=== PATIENT | female | born 1950 | race Caucasian/White ===

== ENCOUNTER 2017-02-08 17:34 | Inpatient (IN) | payer MEDICARE, BC, OTHER ==
[~2017-02-08] VITALS: Ht 165.1 cm; Wt 112.5 kg
[2017-02-08] MEDS ORDERED: LISI20TA PO (17:45)
[2017-02-08] MEDS ORDERED: LISI40TAB PO (17:46)
[2017-02-08] MEDS ORDERED: HYDR25TAB PO (17:46)
[2017-02-08] MEDS ORDERED: IPRATROPIUM 0.5MG/ALBUTEROL 2.5MG INH SOL UD 3ML (DUONEB)(J7620) NEB PRN (18:15)
[2017-02-08 19:05] LABS: INR 1.06
[2017-02-08 19:07] LABS: DIFF SLIDE NUMBER 340; MEAN CORPUSCULAR HEMOGLOBIN 15.7 pg (27.0-33.0); MEAN CORPUSCULAR HGB CONC 23.8 g/dl (32.0-36.5); PLATELET COUNT, AUTOMATED 397 k/mm3 (150-450); RED CELL DISTRIBUTION WIDTH 18.3 % (11.5-14.5); WHITE BLOOD COUNT 10.9 K/mm3 (4.0-10.0)
[2017-02-08 19:30] LABS: CALCIUM LEVEL 8.1 MG/DL (8.8-10.2); CREATININE FOR GFR 1.59 MG/DL (0.55-1.02); GLOMERULAR FILTRATION RATE 34.6 (>45); POTASSIUM SERUM 3.7 MEQ/L (3.5-5.1)
[2017-02-08 19:32] LABS: ALBUMIN 2.8 GM/DL (3.2-5.2); ALBUMIN/GLOBULIN RATIO 0.7 (1.00-1.93); BILIRUBIN,DIRECT 0.2 MG/DL (0.0-0.2); BILIRUBIN,TOTAL 0.7 MG/DL (0.2-1.0); TOTAL PROTEIN 6.8 GM/DL (6.4-8.2)
[2017-02-08 19:49] LABS: ANISOCYTOSIS 2+; HYPOCHROMASIA 3+; MICROCYTOSIS 3+; POLYCHROMASIA 1+
[2017-02-08] MEDS ORDERED: ACET50TAOT PO (20:00)
[2017-02-08 20:38] LABS: RETIC HEMOGLOBIN CONTENT CHr 18.7 PG (24-36); RETICULOCYTE ABSOLUTE ADVIA212 98 x10(9)/L (17-77)
[2017-02-08 20:42] LABS: REASON FOR REVIEW COMPREHENSIVE REVIEW
[2017-02-08 20:43] LABS: PERCENT SATURATION 1.7 % (13.2-37.4)
[2017-02-08 20:55] LABS: FOLATE 10.5 NG/ML (>5.4)
--- NOTE | 2017-02-08 21:10 | REP ---
CHEST, TWO VIEWS: HISTORY: Dyspnea and cough. COMPARISON: 01/25/2017 The lung lomas are hypoexpanded. The cardiomediastinal silhouette is unchanged. The heart is borderline for the technique utilized. There is a hiatal hernia status quo. There are no new abnormal opacities. Fibrotic changes are seen in the left lung base accentuated by technique. There is no change in the osseous structures. IMPRESSION: Stable appearing chronic changes as described above. Signed by Catalino Mercer DO 02/09/2017 12:18 P
[2017-02-08 21:56] LABS: FREE T4 1.27 NG/DL (0.76-1.46); MAGNESIUM LEVEL 2.7 MG/DL (1.8-2.4); TOTAL PROTEIN 6.9 GM/DL (6.4-8.2)
--- NOTE | 2017-02-08 22:56 | HPEPDOC ---
General Date of Admission Feb 08, 2017 at 20:58 Attending Physician: KESHA CHAUDHARY MD Chief Complaint The patient is a 66-year-old female admitted with a reason for visit of Anemia. Source: Patient Exam Limitations: No limitations Timing/Duration: Week(s) Severity: Severe History of Present Illness Paola Walls is an anxious 66 year old female with a history of hypertension who presents with shortness of breath and fatigue. Her daughter and son were present during the interview. 5 weeks ago, she had what she said was "a sinus infection" treated with a nasal spray. The symptoms did not improve, and on follow up she was diagnosed with pneumonia and started on Levaquin. The antibiotics did not seem to help her and she started to become pale 1 week ago. She denies any active bleeding source but states she has always had anemia. Her hemoglobin was 2.9 on admission. She denies and nausea, vomiting, fevers, night sweats, or pain. She does admit to feeling chilled. Her ECG showed sinus tachycardia at 100bmp with non-specific ST-T wave changes, but was otherwise unremarkable . Transfusion of 2 PRBC's started in the ER. Home Medications Scheduled (Senna Plus 8.6-50 mg) 1 Tab Tab, 1 TAB PO BID Ascorbic Acid (Vitamin C) 250 Mg Tab, 250 MG PO BID Cyanocobalamin (Vitamin B-12) 1,000 Mcg Tab, 1,000 MCG PO BID Ferrous Sulfate (Ferrous Sulfate) 325 Mg Tab, 325 MG PO BID Omeprazole (Omeprazole) 20 Mg Cap, 40 MG PO BID Scheduled PRN Acetaminophen (Acetaminophen) 500 Mg Tab, 250 MG PO for PAIN, (Reported) Allergies Coded Allergies: No Known Drug Allergy (Unverified Allergy, Unknown, 01/16/13) Past Medical History Medical History Hypertension, Anemia (low grade per patient) Surgical History Bilateral Cataract removal 3 children, 2 c-sections She thinks she may have had a colonoscopy a long time ago, but cannot remember. Family History Significant Family History: Heart disease (Father and mother) Also, 2 Brothers with history of AK, they also have HTN. 3 children, all of whom think they have anemia, one is taking iron pills. Social History * Smoker: Denies Alcohol: Denies Drugs: denies Recent Travel/Sick Contacts: Denies: Recent sick contacts . Review of Symptoms Constitutional: Reports: Chills, Fatigue, Denies: Fever, Night Sweats Skin: Reports: Other (pale) Pulmonary: Reports: Dyspnea, Denies: Pleuritic Chest Pain Cardiovascular: Denies: Chest Pain, Edema Gastrointestinal: Denies: Nausea, Vomiting, Abdominal Pain, Diarrhea, Constipation, Melena, Hematochezia Genitourinary: Reports: Other Symptoms (Still has uterus, went through menopause over 10 years ago. No vaginal bleeding.), Denies: Hematuria Psych: Reports: Anxiety Physical Examination General Exam: Positive: Alert, Cooperative, Mild Distress Eye Exam: Positive: PERRLA, EOMI ENT Exam: Positive: Atraumatic, Other ENT (Pale oral mucosa) Chest Exam: Positive: Clear to auscultation, Negative: Rales, Rhonchi, Wheezing Heart Exam: Positive: Tachycardic, Murmurs (1/6 systolic), Negative: Gallops, Rubs Abdomen Exam: Positive: Normal bowel sounds, Soft, Negative: Tenderness Skin Exam: Negative: Rash Neuro Exam: Positive: Normal Speech Vital Signs Vital Signs Date Time Temp Pulse Resp B/P Pulse Ox O2 Delivery O2 Flow Rate FiO2 02/08/17 20:18 104 18 130/62 100 Room Air 02/08/17 17:34 98.1 Laboratory Data Labs 24H Laboratory Tests 2 02/08/17 18:34: Absolute Reticulocyte Count 98H, Aspartate Amino Transf (AST/SGOT) 12L, Alanine Aminotransferase (ALT/SGPT) 16, Alkaline Phosphatase 97, Total Bilirubin 0.7, Direct Bilirubin 0.2, Albumin 2.8L, Albumin/Globulin Ratio 0.70L, Anion Gap 10, Anisocytosis 2+, B-Type Natriuretic Peptide 192H, Blood Urea Nitrogen 47H, Creatinine 1.59H, Sodium Level 138, Potassium Level 3.7, Chloride Level 106, Carbon Dioxide Level 22, Calcium Level 8.1L, Differential Pathologist's Review COMPREHENSIVE REVIEW, Differential Slide Review Report, Ferritin 2L, Folate 10.5 , Glomerular Filtration Rate 34.6L, Hypochromasia 3+, Iron Level 9L, Lactic Acid Level 1.9, Lipase 373, Lymphocytes (Manual) 20, Microcytosis 3+, Monocytes (Manual) 6, Neutrophils 74, Percent Reticulocyte Count 5.30H, Peripheral Blood Smear Path Consult PERIPHERAL SMEAR, Platelet Estimate NORMAL, Polychromasia 1+ , Prothromb Time International Ratio 1.06, Prothrombin Time 13.9, Reticulocyte Hgb Content (CHr) 18.7L, Total Iron Binding Capacity 522H, Total Protein 6.8, Transferrin % Saturation 1.7L, Vitamin B12 Level 180L CBC/BMP Laboratory Tests 02/08/17 18:34 Calcium Level 8.1 L, Red Blood Count 1.87 L, Mean Corpuscular Volume 66.0 L, Mean Corpuscular Hemoglobin 15.7 L, Mean Corpuscular Hemoglobin Concent 23.8 L, Red Cell Distribution Width 18.3 H Microbiology Microbiology 02/08/17 Blood Culture, Received Pending Problems (1) Symptomatic anemia Status: Chronic Response to Treatment: Improving Discussed With: Patient Problem Text: Patient was given 2 transfusions in the ER. Will continue to monitor H/H being careful not to fluid overload the patient. Iron deficiency anemia. Differentials included parvovirus B19 aplastic crisis, myelosuppression due to Levaquin use, multiple myeloma, thalassemia, acute bleeding, and hemolytic syndromes. Ordered SPEP and HPEP, iron studies, magnesium level, UA, LFT, TFT, LDH, haptoglobin, and occult blood stool. Pending results, may consider colonoscopy & EGD. (2) Shortness of breath Status: Acute Response to Treatment: Stable Discussed With: Patient Problem Text: Patient is currently not in any respiratory distress. Talking in complete sentences. Likely due to anemia. CXR did not show evidence of PNA. Will treat anemia and follow symptoms closely. (3) B12 deficiency Status: Acute (4) Leukocytosis Status: Acute (5) Hypertension Status: Chronic (6) Hiatal hernia Status: Chronic Plan / VTE VTE Prophylaxis Ordered?: No VTE Exclusion Pharmacological: Bleeding Risk Plan Plan I have both independently examined this patient as well as reviewed the dictated note. I have discussed in detail with the resident the findings and plan of treatment as documented in the residents note. I will continue to follow the patient and offer further guidance to the patients care as necessary during this hospital stay. Grossly anemic. Informed consent obtained for transfusion. Case discussed with Dr. Manrique, her primary care provider, in general. GREGG GREEN DO Feb 08, 2017 22:56 KESHA CHAUDHARY MD Feb 12, 2017 20:26
[2017-02-08 23:50] VITALS: BP 110/52
[2017-02-09 04:00] VITALS: PULSE 83
--- NOTE | 2017-02-09 05:52 | ECGEPIP ---
Stationary ECG Study [facility] - ED Test Date: 2017-02-08 Pat Name: DENISE VELA Department: Room: - Gender: F [employer] Supervisor: miya : 1950 Requested By: ZELALEM MALDONADO Order Number: [id number] Reading MD: Valentino Hubbard Measurements Intervals Warren Rate: 100 P: 54 NV: 159 QRS: 0 QRSD: 89 T: 66 QT: 333 QTc: 431 Interpretive Statements SINUS TACHYCARDIA ANTEROLATERAL ST DEPRESSION, CONSIDER ISCHEMIA NO PRIORS Electronically Signed On 02-09-2017 5:52:22 EDT by Valentino Hubbard
[2017-02-09 05:55] LABS: MEAN CORPUSCULAR HEMOGLOBIN 20.6 pg (27.0-33.0); MEAN CORPUSCULAR HGB CONC 28.9 g/dl (32.0-36.5); RED CELL DISTRIBUTION WIDTH 19.9 % (11.5-14.5); WHITE BLOOD COUNT 9.8 K/mm3 (4.0-10.0)
[2017-02-09 05:58] LABS: MEAN CORPUSCULAR VOLUME 71.3 fl (80.0-96.0)
[2017-02-09 06:09] LABS: CALCIUM LEVEL 7.8 MG/DL (8.8-10.2); CREATININE FOR GFR 1.41 MG/DL (0.55-1.02); GLOMERULAR FILTRATION RATE 39.7 (>45); POTASSIUM SERUM 3.6 MEQ/L (3.5-5.1)
[2017-02-09] MEDS ORDERED: POTASSIUM CHLORIDE 10 MEQ SR TABLET PO ONE (07:15)
[2017-02-09 07:30] VITALS: BP 102/56
--- NOTE | 2017-02-09 08:29 | IPNPDOC ---
Subjective Date Seen The patient was seen on 02/09/17. Subjective Chief Complaint/HPI The patient is a 66-year-old female admitted with a reason for visit of Anemia. General: Denies: Chills Eyes: Denies: Vision change, Conjunctivae inflammation, Eyelid inflammation, Redness Pulmonary: Reports: Dyspnea (pt states she does not have SOB at rest, but has not been ambulating much since she was admitted, noted the SOB more with ambulation at home), Denies: Cough Cardiovascular: Denies: Chest Pain, Palpitations Gastrointestinal: Denies: Nausea, Vomiting, Abdominal Pain Neurological: Denies: Weakness Psych: Reports: Mood Normal Objective Physical Examination General Exam: Positive: Alert, Cooperative, Mild Distress Eye Exam: Positive: PERRLA, EOMI, Other Eye Symptoms (conjunctival pallor noted b/l) ENT Exam: Positive: Atraumatic, Other ENT (oral mucosa and gums show pallor) Chest Exam: Positive: Clear to auscultation, Negative: Rales, Rhonchi, Wheezing Heart Exam: Positive: Tachycardic, Murmurs (1/6 systolic), Negative: Gallops, Rubs Abdomen Exam: Positive: Normal bowel sounds, Soft, Negative: Tenderness Skin Exam: Negative: Rash Neuro Exam: Positive: Normal Speech Assessment /Plan Problems (1) Symptomatic anemia Status: Chronic Response to Treatment: Improving Discussed With: Patient Problem Text: S/p 2 units PRBC in ED, hg now 4.9 from 2.9 on admission will receive another 2 units PRBC today and recheck H/H consulted GI- will take for Colonoscopy tomorrow retic count 5.3 iron 9- will begin iron, vitamin C and senna-s. continue to monitor (2) Shortness of breath Status: Acute Response to Treatment: Stable Discussed With: Patient Problem Text: Pt states she is not SOB at rest, but has not really ambulated since she has been in the hospital. She was SOB on ambulation at home. Will continue to monitor CXR in ED was negative for etiology of SOB Likely 2/2 anemia continue to monitor (3) B12 deficiency Status: Acute Response to Treatment: Stable Problem Text: will supplement 1000 mg PO daily continue to monitor (4) Leukocytosis Status: Acute Response to Treatment: Stable Problem Text: 9.8 from 10.9 continue to monitor blood cx pending no active signs of infection (5) Hypertension Status: Chronic Response to Treatment: Stable Problem Text: 110/52 stable will not add on BP meds at this time continue to monitor (6) Hiatal hernia Status: Chronic Response to Treatment: Stable Problem Text: stable (7) DVT prophylaxis Status: Acute Response to Treatment: Stable Problem Text: SCD teds Plan/VTE VTE Prophylaxis Ordered?: No VTE Exclusion Pharmacological: Bleeding Risk VS, I&O, 24H, Fishbone Vital Signs/I&O Vital Signs Date Time Temp Pulse Resp B/P (MAP) Pulse Ox O2 Delivery O2 Flow Rate FiO2 02/09/17 04:00 83 02/08/17 23:50 98.8 20 110/52 (71) 96 Room Air I&O- Last 24 Hours up to 6 AM 02/09/17 06:00 Intake Total 450 ml Output Total 200 ml Balance 250 ml Laboratory Data 24H LABS Laboratory Tests 2 02/08/17 18:34: Neutrophils 74, Lymphocytes (Manual) 20, Monocytes (Manual) 6, Differential Slide Review Report, Differential Pathologist's Review COMPREHENSIVE REVIEW, Platelet Estimate NORMAL, Polychromasia 1+, Hypochromasia 3+, Anisocytosis 2+, Microcytosis 3+, Peripheral Blood Smear Path Consult PERIPHERAL SMEAR, Absolute Reticulocyte Count 98H, Percent Reticulocyte Count 5.30H, Reticulocyte Hgb Content (CHr) 18.7L, Prothrombin Time 13.9, Prothromb Time International Ratio 1.06, Anion Gap 10, Glomerular Filtration Rate 34.6L, Lactic Acid Level 1.9, Blood Urea Nitrogen 47H, Creatinine 1.59H, Sodium Level 138, Potassium Level 3.7 , Chloride Level 106, Carbon Dioxide Level 22, Calcium Level 8.1L, Magnesium Level 2.7H, Iron Level 9L, Total Iron Binding Capacity 522H, Transferrin % Saturation 1.7L, Ferritin 2L, Aspartate Amino Transf (AST/SGOT) 12L, Alanine Aminotransferase (ALT/SGPT) 16, Alkaline Phosphatase 97, Total Bilirubin 0.7, Direct Bilirubin 0.2, Lactate Dehydrogenase 177, B-Type Natriuretic Peptide 192H , Total Protein 6.9, Albumin 2.8L, Albumin/Globulin Ratio 0.70L, Lipase 373, Vitamin B12 Level 180L, Folate 10.5, Thyroid Stimulating Hormone (TSH) 1.840, Free Thyroxine 1.27 02/09/17 05:32: Anion Gap 8, Glomerular Filtration Rate 39.7L, Blood Urea Nitrogen 42H, Creatinine 1.41H, Sodium Level 140, Potassium Level 3.6, Chloride Level 109H, Carbon Dioxide Level 23, Calcium Level 7.8L CBC/BMP Laboratory Tests 02/08/17 18:34 Red Blood Count 1.87 L, Mean Corpuscular Volume 66.0 L, Mean Corpuscular Hemoglobin 15.7 L, Mean Corpuscular Hemoglobin Concent 23.8 L, Red Cell Distribution Width 18.3 H, Calcium Level 8.1 L 02/09/17 05:32 Red Blood Count 2.40 L, Mean Corpuscular Volume 71.3 #L, Mean Corpuscular Hemoglobin 20.6 L, Mean Corpuscular Hemoglobin Concent 28.9 L, Red Cell Distribution Width 19.9 H, Calcium Level 7.8 L Microbiology Microbiology 02/08/17 Blood Culture, Received Pending GME ATTESTATION GME ATTESTATION My preceptor for this patient encounter was physically present in the building during the encounter and was fully available. As needed, all aspects of the patient interview, examination, medical decision making process, and medical care plan development were reviewed and approved by the preceptor. Preceptor is aware and concurs with the plan as stated in the body of this note and will attest to such by his/her cosignature. ATTENDING NOTE I have both independently examined this patient as well as reviewed the note. I have discussed in detail with the resident the findings and plan of treatment as documented in the residents note. I will continue to follow the patient and offer further guidance to the patients care as necessary during this hospital stay. CHRISTI Reed MD, DO Feb 09, 2017 08:29 RYANNE DUGAN MD Feb 10, 2017 06:47
[2017-02-09] MEDS ORDERED: FERROUS SULFATE 300MG/5ML UDC LIQUID PO SCH (09:00)
[2017-02-09] MEDS ORDERED: SLF 3 ML SYR IV PRN (10:15)
[2017-02-09] MEDS: SENOKOT S TAB PO SCH ×2 (12:24→20:44)
[2017-02-09] MEDS: ASCORBIC ACID 250 MG TAB PO SCH ×2 (12:24→20:44)
[2017-02-09] MEDS: CYANOCOBALAMIN 500 MCG TAB PO SCH ×2 (12:24→20:45)
[2017-02-09] MEDS: FERROUS SULFATE 325MG TAB PO SCH ×2 (12:24→20:44)
[2017-02-09 16:20] VITALS: BP 139/65
[2017-02-09] MEDS ORDERED: GOLYTELY SOLN 4000 ML BTL PO ONE (17:15)
[2017-02-09] MEDS ORDERED: MOM 30ML SUSPENSION UDC PO ONE (17:15)
[2017-02-09] MEDS: PANTOPRAZOLE 40MG INJ (PROTONIX) (C9113) IV SCH ×2 (17:34→20:44)
[2017-02-09] MEDS: SLF 3 ML SYR IV SCH ×2 (17:34→22:00)
[2017-02-09 19:57] VITALS: BP 118/58
[2017-02-09 23:59] VITALS: BP 111/53
[2017-02-10] VITALS (7 sets, daily range): BP systolic 104–149; BP diastolic 54–74
[2017-02-10] MEDS ORDERED: ACETAMINOPHEN TAB 650MG DOSE (2X325MG) PO PRN (02:15)
[2017-02-10] MEDS ORDERED: GOLYTELY SOLN 4000 ML BTL PO ONE (05:00)
[2017-02-10] MEDS: SLF 3 ML SYR IV SCH ×3 (05:12→21:26)
[2017-02-10 06:21] LABS: MEAN CORPUSCULAR HEMOGLOBIN 24.9 pg (27.0-33.0); MEAN CORPUSCULAR HGB CONC 31.9 g/dl (32.0-36.5); RED CELL DISTRIBUTION WIDTH 19.4 % (11.5-14.5); WHITE BLOOD COUNT 12.8 K/mm3 (4.0-10.0)
[2017-02-10 06:38] LABS: CALCIUM LEVEL 7.8 MG/DL (8.8-10.2); CREATININE FOR GFR 1.33 MG/DL (0.55-1.02); GLOMERULAR FILTRATION RATE 42.5 (>45); POTASSIUM SERUM 3.7 MEQ/L (3.5-5.1)
[2017-02-10] MEDS: FERROUS SULFATE 325MG TAB PO SCH ×2 (09:38→21:26)
[2017-02-10] MEDS: CYANOCOBALAMIN 500 MCG TAB PO SCH ×2 (09:38→21:26)
[2017-02-10] MEDS: ASCORBIC ACID 250 MG TAB PO SCH ×2 (09:38→21:26)
[2017-02-10] MEDS: SENOKOT S TAB PO SCH ×2 (09:38→21:26)
[2017-02-10] MEDS: PANTOPRAZOLE 40MG INJ (PROTONIX) (C9113) IV SCH (09:38)
--- NOTE | 2017-02-10 10:27 | IPNPDOC ---
Subjective Date Seen The patient was seen on 02/10/17. Subjective Chief Complaint/HPI The patient is a 66-year-old female admitted with a reason for visit of Anemia. General: Denies: Chills Eyes: Denies: Pain, Vision change, Conjunctivae inflammation Skin: Denies: Rash, Lesions Pulmonary: Denies: Dyspnea, Cough Cardiovascular: Denies: Chest Pain, Palpitations Gastrointestinal: Denies: Nausea, Vomiting, Abdominal Pain, Diarrhea, Constipation Neurological: Denies: Weakness Objective Physical Examination General Exam: Positive: Alert, Cooperative, No Acute Distress, Negative: Mild Distress Eye Exam: Positive: PERRLA, EOMI, Other Eye Symptoms (conjunctival pallor noted b/l) ENT Exam: Positive: Atraumatic, Other ENT (oral mucosa and gums show pallor) Chest Exam: Positive: Clear to auscultation, Negative: Rales, Rhonchi, Wheezing Heart Exam: Positive: Tachycardic, Murmurs (1/6 systolic), Negative: Gallops, Rubs Abdomen Exam: Positive: Normal bowel sounds, Soft, Negative: BS Hyperactive, BS Hypoactive, Tenderness Skin Exam: Negative: Rash Neuro Exam: Positive: Normal Speech Assessment /Plan Problems (1) Symptomatic anemia Status: Chronic Response to Treatment: Improving Discussed With: Patient Problem Text: Patient's hemoglobin has come up to 9.1 after receiving additional 2 units of blood yesterday Hemoccult-positive GI will take patient for colonoscopy today. S/p 2 units PRBC in ED, hg 2.9 on admission retic count 5.3 iron 9- will begin iron, vitamin C and senna-s. continue to monitor (2) Shortness of breath Status: Acute Response to Treatment: Stable Discussed With: Patient Problem Text: PT denies SOB currently Will continue to monitor CXR in ED was negative for etiology of SOB Likely 2/2 anemia continue to monitor (3) B12 deficiency Status: Acute Response to Treatment: Stable Problem Text: will continue to supplement 1000 mg PO daily continue to monitor (4) Leukocytosis Status: Acute Response to Treatment: Stable Problem Text: 12.8 from 9.8 one day prior continue to monitor blood cx neg after 24 hours no active signs of infection (5) Hypertension Status: Chronic Response to Treatment: Stable Problem Text: 121/65 stable will hold off on BP medications at this time continue to monitor (6) Hiatal hernia Status: Chronic Response to Treatment: Stable Problem Text: stable (7) DVT prophylaxis Status: Acute Response to Treatment: Stable Problem Text: SCD teds Plan/VTE VTE Prophylaxis Ordered?: No VTE Exclusion Pharmacological: Bleeding Risk VS, I&O, 24H, Fishbone Vital Signs/I&O Vital Signs Date Time Temp Pulse Resp B/P (MAP) Pulse Ox O2 Delivery O2 Flow Rate FiO2 02/10/17 07:30 98.7 77 20 121/65 (83) 97 Room Air I&O- Last 24 Hours up to 6 AM 02/10/17 06:00 Intake Total 3203 ml Output Total 2950 ml Balance 253 ml Laboratory Data 24H LABS Laboratory Tests 2 02/10/17 05:43: Anion Gap 10, Glomerular Filtration Rate 42.5L, Blood Urea Nitrogen 24H, Creatinine 1.33H, Sodium Level 142, Potassium Level 3.7, Chloride Level 109H, Carbon Dioxide Level 23, Calcium Level 7.8L, Immunoglobulin A 349.0 CBC/BMP Laboratory Tests 02/09/17 15:45 02/10/17 05:43 Red Blood Count 3.65 L, Mean Corpuscular Volume 78.0 #L, Mean Corpuscular Hemoglobin 24.9 L, Mean Corpuscular Hemoglobin Concent 31.9 L, Red Cell Distribution Width 19.4 H, Calcium Level 7.8 L Microbiology Microbiology 02/08/17 Blood Culture - Preliminary, Resulted No growth after 24 hours . All specim... 02/09/17 Stool Occult Blood (STANLYE) - Final, Complete GME ATTESTATION GME ATTESTATION My preceptor for this patient encounter was physically present in the building during the encounter and was fully available. As needed, all aspects of the patient interview, examination, medical decision making process, and medical care plan development were reviewed and approved by the preceptor. Preceptor is aware and concurs with the plan as stated in the body of this note and will attest to such by his/her cosignature. ATTENDING NOTE I have both independently examined this patient as well as reviewed the note. I have discussed in detail with the resident the findings and plan of treatment as documented in the residents note. I will continue to follow the patient and offer further guidance to the patients care as necessary during this hospital stay. CHRISTI Reed MD, DO Feb 10, 2017 10:27 RYANNE DUGAN MD Feb 11, 2017 06:43
[2017-02-10 12:20] LABS: ALBUMIN 3.13 GM/DL (3.29-5.55); ALBUMIN % 45.4 % (55.8-66.1); GAMMA GLOBULIN % 20.1 % (11.1-18.8)
[2017-02-10] MEDS ORDERED: LIDOCAINE 2% INJ 100 MG/5 ML SDV (FOR ANES.) As Ordered ONE (16:43)
[2017-02-10] MEDS ORDERED: PROPOFOL 200 MG/20 ML VIAL As Ordered ONE ×2 (16:43→17:47)
--- NOTE | 2017-02-10 18:00 | ROOR ---
Patient Name: Paola Walls Procedure Date: 02/10/2017 4:55 PM Date of : 1950 Age: 66 Gender: Female Note Status: Finalized Procedure: Colonoscopy Indications: Iron deficiency anemia Providers: Joselito TPITON MD Referring MD: Asif Manrique MD, 2. Inpatient 2. Inpatient Requesting Provider: Medicines: Monitored Anesthesia Care Complications: No immediate complications. Procedure: Pre-Anesthesia Assessment: - The heart rate, respiratory rate, oxygen saturations, blood pressure, adequacy of pulmonary ventilation, and response to care were monitored throughout the procedure. The Endoscope was introduced through the mouth, and advanced to the cecum, identified by appendiceal orifice and ileocecal valve. The Colonoscope was introduced through the anus and advanced to the cecum, identified by appendiceal orifice and ileocecal valve. The colonoscopy was performed without difficulty. The patient tolerated the procedure well. The quality of the bowel preparation was good. Findings: The perianal exam findings include non-thrombosed external hemorrhoids. (EXAM: Complete, PREP:Adequate) A 6 mm polyp was found in the hepatic flexure. The polyp was sessile. The polyp was removed with a cold snare. Resection and retrieval were complete. A 4 mm polyp was found in the sigmoid colon. The polyp was sessile. The polyp was removed with a cold snare. Resection and retrieval were complete. Multiple small-mouthed diverticula were found in the sigmoid colon and descending colon. The exam was otherwise without abnormality on direct and retroflexion views. Impression: - Non-thrombosed external hemorrhoids found on perianal exam. - One 6 mm polyp at the hepatic flexure, removed with a cold snare. Resected and retrieved. - One 4 mm polyp in the sigmoid colon, removed with a cold snare. Resected and retrieved. - Moderate diverticulosis in the sigmoid colon and in the descending colon. - The examination was otherwise normal on direct and retroflexion views. Recommendation: - Return to my office at appointment to be scheduled. - To visualize the small bowel, perform video capsule endoscopy at appointment to be scheduled. - Repeat colonoscopy in 3 years for surveillance. Joselito Tipton MD Joselito TIPTON MD 02/10/2017 5:59:46 PM This report has been signed electronically. Number of Addenda: 0 Note Initiated On: 02/10/2017 4:55 PM Estimated Blood Loss: Estimated blood loss: none.
--- NOTE | 2017-02-10 18:11 | ROOR ---
Patient Name: Paola Walls Procedure Date: 02/10/2017 6:01 PM Date of : 1950 Age: 66 Gender: Female Note Status: Finalized Procedure: Upper GI endoscopy Indications: Iron deficiency anemia Providers: Joselito TIPTON MD Referring MD: 2. Inpatient 2. Inpatient, Asif Manrique MD Requesting Provider: Medicines: Monitored Anesthesia Care Complications: No immediate complications. Procedure: Pre-Anesthesia Assessment: - The heart rate, respiratory rate, oxygen saturations, blood pressure, adequacy of pulmonary ventilation, and response to care were monitored throughout the procedure. The Endoscope was introduced through the mouth, and advanced to the third part of duodenum. The upper GI endoscopy was accomplished without difficulty. The patient tolerated the procedure well. Findings: A medium-sized hiatal hernia with multiple Baldev ulcers was found. The Z-line was 30 cm from the incisors. This was biopsied with a cold forceps for histology. Moderately severe esophagitis was found at the gastroesophageal junction. Biopsies were taken with a cold forceps for histology. The examined duodenum was normal. Biopsies for histology were taken with a cold forceps for evaluation of celiac disease. A diverticulum was found in the second portion of the duodenum. Impression: - Medium-sized hiatal hernia with multiple linear Baldev erosions across waist of hiatal hernia. Biopsied. - Moderately severe reflux esophagitis. Biopsied. - Normal examined duodenum. Biopsied. - Duodenal diverticulum. Recommendation: - To visualize the small bowel, perform video capsule endoscopy at appointment to be scheduled. - Return to my office at the next available appointment. - depending on outpatient capsule endoscopy results and depending on results of PPI therapy for iron deficit, would consider surgical repair of hiatal hernia as cause for camerons erosions/iron deficit. Joselito Tipton MD Joselito TIPTON MD 02/10/2017 6:10:41 PM This report has been signed electronically. Number of Addenda: 0 Note Initiated On: 02/10/2017 6:01 PM Estimated Blood Loss: Estimated blood loss: none.
[2017-02-10] MEDS ORDERED: LR 1,000 ML IV SCH ×2 (18:30→19:00)
[2017-02-10] MEDS: OMEPRAZOLE 20 MG CAP PO SCH (21:26)
[2017-02-11 04:00] VITALS: BP 140/75
[2017-02-11 06:15] LABS: MEAN CORPUSCULAR HEMOGLOBIN 25.8 pg (27.0-33.0); MEAN CORPUSCULAR HGB CONC 32.1 g/dl (32.0-36.5); MEAN CORPUSCULAR VOLUME 80.6 fl (80.0-96.0); RED CELL DISTRIBUTION WIDTH 21.1 % (11.5-14.5); WHITE BLOOD COUNT 13.1 K/mm3 (4.0-10.0)
[2017-02-11 06:29] LABS: CALCIUM LEVEL 7.5 MG/DL (8.8-10.2); CREATININE FOR GFR 1.18 MG/DL (0.55-1.02); GLOMERULAR FILTRATION RATE 48.8 (>45); POTASSIUM SERUM 3.5 MEQ/L (3.5-5.1)
[2017-02-11] MEDS: SLF 3 ML SYR IV SCH (06:54)
[2017-02-11 07:20] VITALS: BP 120/59
[2017-02-11] MEDS ORDERED: POTASSIUM CHLORIDE 10 MEQ SR TABLET PO ONE (08:00)
[2017-02-11] MEDS: FERROUS SULFATE 325MG TAB PO SCH (08:16)
[2017-02-11] MEDS: SENOKOT S TAB PO SCH (08:17)
[2017-02-11] MEDS: ASCORBIC ACID 250 MG TAB PO SCH (08:17)
[2017-02-11] MEDS: OMEPRAZOLE 20 MG CAP PO SCH (08:17)
[2017-02-11] MEDS: CYANOCOBALAMIN 500 MCG TAB PO SCH (08:17)
[2017-02-11] MEDS ORDERED: FERR325T PO (10:12)
[2017-02-11] MEDS ORDERED: VITA10002 PO (10:12)
[2017-02-11] MEDS ORDERED: OMEP20CA3 PO (10:12)
[2017-02-11] MEDS ORDERED: SENN1TAB2 PO (10:12)
[2017-02-11] MEDS ORDERED: ASCO25TA PO (10:12)
--- NOTE | 2017-02-11 10:44 | DS.PDOC ---
Discharge Summary General Date of Admission Feb 08, 2017 at 20:58 Date of Discharge 02-11-17 Discharge Summary PROCEDURES PERFORMED DURING STAY: Colonoscopy ADMITTING DIAGNOSES: 1. Symptomatic anemia 2. Shortness of breath 3. B12 deficiency 4. Leukocytosis 5. Hypertension 6. Hiatal hernia DISCHARGE DIAGNOSES: 1. Symptomatic anemia 2. Shortness of breath 3. B12 deficiency 4. Leukocytosis 5. Hypertension 6. Hiatal hernia COMPLICATIONS/CHIEF COMPLAINT: SOB & Fatigue HISTORY OF PRESENT ILLNESS: The patient is a 66-year-old female with past medical history of hypertension who presented to the emergency department on with a complaint of shortness of breath and fatigue. HOSPITAL COURSE: On presentation the hospital the patient's hemoglobin was found to be 2.9 on admission. She received 2 units of packed red blood cells in the emergency department at which time her hemoglobin elevated to 4.9. The patient was transferred to the medical floor and received an additional 2 units. On day of discharge her hemoglobin was 8.7. The patient underwent colonoscopy procedure while in the hospital which revealed a hiatal hernia and esophagitis. The patient stated on the discharge that she felt good and was not dizzy or short of breath. She was excited to be going home and understands she' ll need to follow up outpatient with GI and her PCP DISCHARGE MEDICATIONS: Please see below. ALLERGIES: Please see below. PHYSICAL EXAMINATION ON DISCHARGE: VITAL SIGNS: Please see below. GENERAL: Pleasant, conversant, no acute distress, sitting upright in bed. HEENT: Nares patent bilaterally, EOMI, moist mucous membranes. NECK: Supple CARDIOVASCULAR EXAMINATION: Normal S1, S2, NSR. No gallops, rubs, murmurs appreciated. RESPIRATORY EXAMINATION: Clear to auscultation bilaterally, no rales, rhonchi, wheezing appreciated. ABDOMINAL EXAMINATION: Soft, nondistended, nontender, obese, NABS 4, no rebound rigidity or guarding, no organomegaly appreciated. EXTREMITIES: Nailbeds without cyanosis or pitting, no edema, clubbing appreciated. SKIN: Intact NEUROLOGICAL EXAMINATION: No focal deficits appreciated PSYCHIATRIC EXAMINATION: Normal affect and appropriate demeanor LABORATORY DATA: Please see below. IMAGING: Chest x-ray 02/08/2017 The lung lomas are hypoexpanded. The cardiomediastinal silhouette is unchanged. The heart is borderline for the technique utilized. There is a hiatal hernia status quo. There are no new abnormal opacities. Fibrotic changes are seen in the left lung base accentuated by technique. There is no change in the osseous structures. PROGNOSIS: Favorable, stable ACTIVITY: As tolerated DIET: As tolerated DISCHARGE PLAN: Discharge home DISPOSITION: Stable DISCHARGE INSTRUCTIONS: 1. Follow up with PCP within 5-7 days of discharge 2. Follow up with GI doctor within 5-7 days of discharge ITEMS TO FOLLOWUP ON ON OUTPATIENT: 1. Follow up with PCP within 5-7 days of discharge 2. Follow up with GI doctor within 5-7 days of discharge DISCHARGE CONDITION: Stable TIME SPENT ON DISCHARGE: Greater than 25 minutes. Vital Signs/I&Os Vital Signs Date Time Temp Pulse Resp B/P (MAP) Pulse Ox O2 Delivery O2 Flow Rate FiO2 02/11/17 07:55 Room Air 02/11/17 07:20 98.1 77 20 120/59 (79) 93 I&O- Last 24 Hours up to 6 AM 02/11/17 06:00 Intake Total 1000 ml Output Total 200 ml Balance 800 ml Laboratory Data Labs 24H Laboratory Tests 2 02/11/17 05:42: Anion Gap 7L, Glomerular Filtration Rate 48.8, Blood Urea Nitrogen 17, Creatinine 1.18H, Sodium Level 143, Potassium Level 3.5, Chloride Level 111H, Carbon Dioxide Level 25, Calcium Level 7.5L CBC/BMP Laboratory Tests 02/11/17 05:42 Red Blood Count 3.37 L, Mean Corpuscular Volume 80.6, Mean Corpuscular Hemoglobin 25.8 L, Mean Corpuscular Hemoglobin Concent 32.1, Red Cell Distribution Width 21.1 H, Calcium Level 7.5 L Microbiology Microbiology 02/08/17 Blood Culture - Preliminary, Resulted No Growth after 48 hours. All Specime... 02/09/17 Stool Occult Blood ([facility]) - Final, Complete Discharge Medications Scheduled (Senna Plus 8.6-50 mg) 1 Tab Tab, 1 TAB PO BID Ascorbic Acid (Vitamin C) 250 Mg Tab, 250 MG PO BID Cyanocobalamin (Vitamin B-12) 1,000 Mcg Tab, 1,000 MCG PO BID Ferrous Sulfate (Ferrous Sulfate) 325 Mg Tab, 325 MG PO BID Omeprazole (Omeprazole) 20 Mg Cap, 40 MG PO BID Scheduled PRN Acetaminophen (Acetaminophen) 500 Mg Tab, 250 MG PO for PAIN, (Reported) Allergies Coded Allergies: No Known Drug Allergy (Unverified Allergy, Unknown, 01/16/13) GME ATTESTATION GME ATTESTATION My preceptor for this patient encounter was physically present in the building during the encounter and was fully available. As needed, all aspects of the patient interview, examination, medical decision making process, and medical care plan development were reviewed and approved by the preceptor. Preceptor is aware and concurs with the plan as stated in the body of this note and will attest to such by his/her cosignature. ATTENDING NOTE I have both independently examined this patient as well as reviewed the note. I have discussed in detail with the resident the findings and plan of treatment as documented in the residents note. I will continue to follow the patient and offer further guidance to the patients care as necessary during this hospital stay. CHRISTI Reed MD, DO Feb 11, 2017 10:44 RYANNE DUGAN MD Feb 12, 2017 07:31
== END 2017-02-11 13:50 | disposition home health service (06) | DRG 812 ==
LOC: M ED 18:22 → M ED INP 20:58 → M PCU 23:44
PROVIDERS: ADMIT Internal Medicine; ATTEND Hospitalist
PROC: 30233N1 Transfusion of Nonautologous Red Blood Cells into Peripheral Vein, Percutaneous Approach (ICD-10-PCS; principal; 2017-02-08)
PROC: 0DBK8ZX Excision of Ascending Colon, Via Natural or Artificial Opening Endoscopic, Diagnostic (ICD-10-PCS; 2017-02-10)
PROC: 0DB48ZX Excision of Esophagogastric Junction, Via Natural or Artificial Opening Endoscopic, Diagnostic (ICD-10-PCS; 2017-02-10)
PROC: 0DBN8ZX Excision of Sigmoid Colon, Via Natural or Artificial Opening Endoscopic, Diagnostic (ICD-10-PCS; 2017-02-10)
PROC: 0DB98ZX Excision of Duodenum, Via Natural or Artificial Opening Endoscopic, Diagnostic (ICD-10-PCS; 2017-02-10)
DX: D50.9 Iron deficiency anemia, unspecified (principal); I10 Essential (primary) hypertension; K44.9 Diaphragmatic hernia without obstruction or gangrene; E53.8 Deficiency of other specified B group vitamins; R06.02 Shortness of breath; D72.829 Elevated white blood cell count, unspecified; K64.4 Residual hemorrhoidal skin tags; K21.0 Gastro-esophageal reflux disease with esophagitis; Z82.49 Family history of ischemic heart disease and other diseases of the circulatory system; D12.5 Benign neoplasm of sigmoid colon; D12.2 Benign neoplasm of ascending colon; K57.50 Diverticulosis of both small and large intestine without perforation or abscess without bleeding

== ENCOUNTER → 2017-03-03 | Outpatient (CLI) | payer MEDICARE, BC, OTHER ==
[~2017-03-03] MED LIST: ACET50TAOT PO; ASCO25TA PO; E-Z-PAQUE 96% w/w SUSP 176GM BTL As Ordered ONE; FERR325T PO; HYDR25TAB PO; LISI20TA PO; LISI40TAB PO; OMEP20CA3 PO; SENN1TAB2 PO; VITA10002 PO
--- NOTE | 2017-03-03 17:05 | REP ---
Small bowel follow-through The procedure was performed under the direct supervision of Dr. Maravilla. The images were reviewed with Dr. Maravilla. The validation software facilitator film shows no organomegaly or pathological masses. The intestinal gas pattern is nonspecific. Liquid barium was administered and the barium column was followed through the small bowel to the level of the terminal ileum. Small bowel transit time is approximately 1 hour . During fluoroscopy gentle palpation shows all loops are freely movable and pliable. There are no fixed or angulated loops. The small bowel mucosal pattern is normal in course and caliber. There is no transition to suggest a partial small bowel obstruction. Spot filming of the terminal ileum shows it to be unremarkable. Impression: Small bowel follow-through examination within normal limits. 48 seconds of fluoro time was utilized for this procedure. Reviewed by MCKAYLA Esquivel 03/03/2017 04:17 PSigned by Jonh Maravilla MD 03/03/2017 04:56 P
== END ==
LOC: M RAD 07:28
PROVIDERS: ATTEND Internal Medicine Gastroenterology
DX: D50.9 Iron deficiency anemia, unspecified (principal)

== ENCOUNTER 2017-04-21 19:54 | Emergency (ER) | payer MEDICARE, BC, OTHER ==
[~2017-04-21] VITALS: Ht 166.4 cm; Wt 106.8 kg
[~2017-04-21 19:54] MED LIST changes: -E-Z-PAQUE 96% w/w SUSP 176GM BTL As Ordered ONE; +FERR1TAB8 PO; -FERR325T PO
[2017-04-21] MEDS ORDERED: HYDR25TA6 (20:29)
[2017-04-21] MEDS ORDERED: LISINOPRIL 10 MG TAB PO ONE (20:45)
[2017-04-21] MEDS ORDERED: **hydrALAZINE** 10 MG TAB PO ONE (20:45)
[2017-04-21 20:55] VITALS: BP 202/89
[2017-04-21 21:04] LABS: MEAN CORPUSCULAR HEMOGLOBIN 28.5 pg (27.0-33.0); MEAN CORPUSCULAR HGB CONC 32.7 g/dl (32.0-36.5); RED CELL DISTRIBUTION WIDTH 16.1 % (11.5-14.5); WHITE BLOOD COUNT 8.2 K/mm3 (4.0-10.0)
[2017-04-21 21:39] LABS: ALBUMIN 3.3 GM/DL (3.2-5.2); ALBUMIN/GLOBULIN RATIO 0.73 (1.00-1.93); ALKALINE PHOSPHATASE 102 U/L (45-117); ALT/SGPT 28 U/L (12-78); ANION GAP 7 MEQ/L (8-16); AST/SGOT 17 U/L (15-37); BILIRUBIN,DIRECT 0.2 MG/DL (0.0-0.2); BILIRUBIN,TOTAL 0.6 MG/DL (0.2-1.0); BLOOD UREA NITROGEN 18 MG/DL (7-18); CALCIUM LEVEL 8.8 MG/DL (8.8-10.2); CARBON DIOXIDE LEVEL 29 MEQ/L (21-32); CHLORIDE LEVEL 109 MEQ/L (98-107); CREATININE FOR GFR 0.94 MG/DL (0.55-1.02); GLOMERULAR FILTRATION RATE > 60.0 (>45); GLUCOSE, FASTING 106 MG/DL (80-110); POTASSIUM SERUM 3.6 MEQ/L (3.5-5.1); SODIUM LEVEL 145 MEQ/L (136-145); TOTAL PROTEIN 7.8 GM/DL (6.4-8.2)
[2017-04-21 21:46] VITALS: BP 142/77
[2017-04-21] MEDS ORDERED: LISI-538 PO (21:46)
== END 2017-04-21 22:01 | disposition home or self-care (01) ==
LOC: M ED 19:54
DX: I10 Essential (primary) hypertension (principal)

== ENCOUNTER → 2017-12-24 | Outpatient (REF) | payer MEDICARE, BC, OTHER | LOC: M LAB REF 11:05 | DX: R30.0 Dysuria (principal) | CPT/HCPCS: 87086 ==

== ENCOUNTER → 2021-02-07 | Outpatient (CLI) | payer MEDICARE, BC, OTHER ==
[~2021-02-07] MED LIST changes: +ACET500T15 PO; -ACET50TAOT PO; +ASCO250T20 PO; -ASCO25TA PO; +CYAN100049 PO; +HYDR-3490; +HYDR-3490 PO; +HYDR25TA6; -HYDR25TAB PO; -LISI20TA PO; +LISI20TA33 PO; +LISI20TA35 PO; +LISI40TA4 PO; -LISI40TAB PO; +OMEP-221; +OMEP1CAP73 PO; -OMEP20CA3 PO; +SENN-53 PO; -SENN1TAB2 PO; -VITA10002 PO
== END ==
LOC: M LABSMTC 08:04
PROVIDERS: ATTEND Anesthesiology
DX: Z01.812 Encounter for preprocedural laboratory examination (principal); Z11.52 Encounter for screening for COVID-19

== ENCOUNTER 2021-02-12 09:38 | Day surgery (SDC) | payer MEDICARE, BC, OTHER ==
[~2021-02-12] VITALS: Ht 157.5 cm; Wt 109.3 kg
[~2021-02-12 09:38] MED LIST changes: +NS 1,000 ML IV ONE
[2021-02-12] MEDS ORDERED: propofoL 500 MG/50 ML VIAL As Ordered ONE (12:13)
[2021-02-12] MEDS ORDERED: LIDOCAINE 2% 100MG/5ML SDV (FOR ANES.) As Ordered ONE (12:13)
--- NOTE | 2021-02-12 12:36 | ROOR ---
Patient Name: Paola Walls Procedure Date: 02/12/2021 12:16 PM Date of : 1950 Age: 70 Room: [facility] Gender: Female Note Status: Finalized Procedure: Colonoscopy Indications: High risk colon cancer surveillance: Personal history of colonic polyps, Last colonoscopy: January 2017 Providers: Joselito TIPTON MD Referring MD: Asif Manrique MD Requesting Provider: Medicines: Monitored Anesthesia Care Complications: No immediate complications. Procedure: Pre-Anesthesia Assessment: - The heart rate, respiratory rate, oxygen saturations, blood pressure, adequacy of pulmonary ventilation, and response to care were monitored throughout the procedure. The Colonoscope was introduced through the anus and advanced to the terminal ileum, with identification of the appendiceal orifice and IC valve. The colonoscopy was performed without difficulty. The patient tolerated the procedure well. The quality of the bowel preparation was good. Findings: The perianal and digital rectal examinations were normal. A 5 mm polyp was found in the ascending colon. The polyp was sessile. The polyp was removed with a cold snare. Resection and retrieval were complete. Multiple medium-mouthed diverticula were found in the sigmoid colon. Internal hemorrhoids were found during retroflexion. The hemorrhoids were moderate. The exam was otherwise without abnormality on direct and retroflexion views. Impression: - One 5 mm polyp in the ascending colon, removed with a cold snare. Resected and retrieved. - Mild/moderate diverticulosis in the sigmoid colon. - Small Internal hemorrhoids. - The examination was otherwise normal on direct and retroflexion views. Recommendation: - Repeat colonoscopy in 5 years for surveillance. Procedure Code(s): --- Professional --- 64533, Colonoscopy, flexible; with removal of tumor(s), polyp(s), or other lesion(s) by snare technique Diagnosis Code(s): --- Professional --- K57.30, Diverticulosis of large intestine without perforation or abscess without bleeding K64.8, Other hemorrhoids Z86.010, Personal history of colonic polyps K63.5, Polyp of colon CPT copyright 2019 [employer]. All rights reserved. The codes documented in this report are preliminary and upon supervisor underwriting clerks review may be revised to meet current compliance requirements. Joselito Tipton MD Joselito TIPTON MD 02/12/2021 12:35:41 PM Electronically signed by Joselito TIPTON MD Number of Addenda: 0 Note Initiated On: 02/12/2021 12:16 PM Estimated Blood Loss: Estimated blood loss: none.
== END 2021-02-12 12:59 | disposition home or self-care (01) ==
LOC: M OPP 09:38
PROVIDERS: ATTEND Internal Medicine Gastroenterology
DX: Z12.11 Encounter for screening for malignant neoplasm of colon (principal); Z86.010 Personal history of colon polyps; K63.5 Polyp of colon; K57.30 Diverticulosis of large intestine without perforation or abscess without bleeding; K64.8 Other hemorrhoids; Z79.899 Other long term (current) drug therapy; Z88.0 Allergy status to penicillin; Z88.8 Allergy status to other drugs, medicaments and biological substances

== ENCOUNTER 2022-09-03 13:48 | Emergency (ER) | payer MEDICARE, BC, OTHER ==
[~2022-09-03 13:48] MED LIST changes: -NS 1,000 ML IV ONE; -OMEP-221; +OMEP40CA5
[2022-09-03] MEDS ORDERED: LISI40TA4 (14:14)
[2022-09-03] MEDS ORDERED: FERR325T3 PO (14:14)
[2022-09-03 15:44] LABS: APPEARANCE, URINE MANUAL HAZY (CLEAR); BILIRUBIN, URINE MANUAL NEGATIVE (NEGATIVE); COLOR, URINE MANUAL YELLOW (YELLOW); GLUCOSE, URINE (UA) MANUAL NEGATIVE (NEGATIVE); KETONE, URINE MANUAL NEGATIVE (NEGATIVE); NITRITE, URINE MANUAL NEGATIVE (NEGATIVE); PROTEIN, URINE MANUAL TRACE mg/dL (NEGATIVE); UROBILINOGEN, URINE MANUAL NORMAL (NORMAL)
[2022-09-03 15:45] LABS: BLOOD URINE MANUAL POSITIVE (NEGATIVE)
[2022-09-03 15:46] LABS: LEUKOCYTE ESTERASE, URINE MAN TRACE (NEGATIVE)
[2022-09-03 15:55] LABS: BACTERIA, URINE SMALL AMOUNT; HYALINE CAST, URINE NONE SEEN /lpf (0-1); RBC, URINE TNTC /hpf (0-3); SQUAMOUS EPITHELIAL CELL URINE SMALL AMOUNT /hpf (SMALL AMT); WBC, URINE 0-1 /hpf (0-3)
[2022-09-03 16:05] LABS: BASO # 0.1 10^3/uL (0.0-0.2); BASO % 0.7 % (0.0-1.0); EOS % 0.4 % (0.0-3.0); HEMATOCRIT 43.7 % (36.0-47.0); HEMOGLOBIN 14.1 g/dl (12.0-15.5); LYMPH # 1.6 10^3/uL (1.5-5.0); LYMPH % 15.8 % (24.0-44.0); MEAN CORPUSCULAR HEMOGLOBIN 30.5 pg (27.0-33.0); MEAN CORPUSCULAR HGB CONC 32.3 g/dl (32.0-36.5); MEAN CORPUSCULAR VOLUME 94.4 fl (80.0-96.0); MONO # 0.6 10^3/uL (0.0-0.8); MONO % 5.7 % (2.0-8.0); NEUTROPHILS # 7.7 10^3/uL (1.5-8.5); NEUTROPHILS % 76.9 % (36.0-66.0); PLATELET COUNT, AUTOMATED 271 10^3/uL (150-450); RED BLOOD COUNT 4.63 10^6/uL (4.00-5.40)
[2022-09-03 17:05] LABS: ALBUMIN 3.9 G/DL (3.2-5.2); BLOOD UREA NITROGEN 16 MG/DL (9-23); CALCIUM LEVEL 9.7 MG/DL (8.3-10.6); CARBON DIOXIDE LEVEL 24 MMOL/L (20-31); CHLORIDE LEVEL 103 MMOL/L (98-107); GLUCOSE, FASTING 111 MG/DL (74-106); SODIUM LEVEL 140 MMOL/L (136-145)
[2022-09-03 17:06] LABS: ALT/SGPT 24 U/L (7.0-40); BILIRUBIN,DIRECT 0.1 MG/DL (<0.4); BILIRUBIN,TOTAL 0.8 MG/DL (0.3-1.2); CREATININE FOR GFR 0.78 MG/DL (0.55-1.30); GLOMERULAR FILTRATION RATE > 60.0 (>39); TOTAL PROTEIN 7.9 G/DL (5.7-8.2)
[2022-09-03 17:37] VITALS: BP 171/83
== END 2022-09-03 17:40 | disposition home or self-care (01) ==
LOC: M ED 13:48
DX: N95.0 Postmenopausal bleeding (principal); D25.9 Leiomyoma of uterus, unspecified; N70.11 Chronic salpingitis; Z88.1 Allergy status to other antibiotic agents; Z79.899 Other long term (current) drug therapy

== ENCOUNTER → 2022-09-22 | Outpatient (REF) | payer MEDICARE, OTHER, BC ==
[~2022-09-22] MED LIST changes: +FERR325T3 PO; +LISI40TA4
== END ==
LOC: M SFHCWAGY 17:29
PROVIDERS: ATTEND Specialist
DX: N95.0 Postmenopausal bleeding (principal)
CPT/HCPCS: 58100; 88305; G0463

== ENCOUNTER → 2025-05-27 | Outpatient (REF) | payer MEDICARE, OTHER, BC ==
[~2025-05-27] MED LIST changes: +LISI40TA10; +LISI40TA10 PO; -LISI40TA4; -LISI40TA4 PO
[2025-05-27 13:29] LABS: VITAMIN B12 LEVEL 781.0 PG/ML (211-911)
== END ==
LOC: M LAB REF 11:42
PROVIDERS: ATTEND Family Medicine
DX: D50.9 Iron deficiency anemia, unspecified (principal)